=== PATIENT | female | born 1955 | race Caucasian/White ===

== ENCOUNTER 2017-09-29 20:41 | Emergency (ER) | payer BC ==
--- NOTE | 2017-09-29 20:51 | CPEKG ---
Heart Rate: 80 RR Interval: 750 P-R Interval: 172 QRSD Interval: 96 QT Interval: 400 QTC Interval: 462 P Lamoni: 81 QRS Lamoni: 18 T Wave Lamoni: 53 EKG Severity - ABNORMAL ECG - EKG Impression: SINUS RHYTHM w nonconducted PAC EKG Impression: PROBABLE LEFT ATRIAL ABNORMALITY EKG Impression: BORDERLINE T ABNORMALITIES, ANTERIOR LEADS Electronically Signed By: Aubrey Dye 01-Oct-2017 09:01:49
[2017-09-29 21:24] LABS: PLATELET COUNT 321 10^3/uL (150-400)
[2017-09-29 21:29] LABS: PROTIME(PATIENT) 13.1 SEC (12.0-15.0)
--- NOTE | 2017-09-29 21:30 | EDPHY ---
H & P Stated Complaint: Lightheaded, short of breath. Time Seen by Provider: 09/29/17 20:46 HPI/ROS: 62-year-old female presents complaining of shortness of breath, dizziness, upper abdominal discomfort, abdominal bloating, a sensation of her legs feeling heavy. She recently return from a trip to [place] where she had similar symptoms but of much shorter duration. She also spent the last 3 days [place] in [place] Review of systems As per HPI General no fever no chills no weakness, generalized fatigue HEENT no eye pain no eye discharge. No eye redness, no sore throat Respiratory no cough, positive shortness of breath, no leg edema Cardiac no chest pain, no peripheral edema GI positive abdominal discomfort, denies abdominal pain, no diarrhea, no constipation, positive nausea and positive poor appetite nausea, no vomiting no flank pain, no hematuria, no dysuria Musculoskeletal no myalgias, no joint pain Heme no easy bruising, no easy bleeding Endo no polyuria, no polydipsia Skin no rashes, no pruritus Neuro no syncope, no dizziness, no headaches Psych is no suicidal ideation, no homicidal ideation Source: Patient, Family Exam Limitations: No limitations - Personal History Current Tetanus/Diphtheria Vaccine: Unsure Current Tetanus Diphtheria and Acellular Pertussis (TDAP): Unsure - Medical/Surgical History Hx Asthma: Yes Hx Chronic Respiratory Disease: No Hx Diabetes: No Hx Cardiac Disease: Yes Hx Renal Disease: No Hx Cirrhosis: No Hx Alcoholism: No Hx HIV/AIDS: No Hx Splenectomy or Spleen Trauma: No Other PMH: depression, hyperlipidemia, asthma, has loop monitor for syncopal episodes and arrythmias-sees Manje[facility]cala, L4-5 fusion, ovarian cyst surgery , GERD, - Family History Significant Family History: No pertinent family hx - Social History Smoking Status: Never smoked Alcohol Use: Rarely Drug Use: None - Physical Exam Exam: A 62-year-old female alert and oriented no acute distress nontoxic appearance afebrile HEENT atraumatic normocephalic, extraocular muscles intact, anicteric Oropharynx negative for erythema negative exudate, tolerating her own secretions Neck supple no meningismus Lungs clear to auscultation bilaterally Heart regular rate and rhythm without murmur rub or gallop Abdomen nondistended normoactive bowel sounds soft, right upper quadrant tenderness no guarding no rebound no pulsatile mass Back no CVA tenderness, no step-offs, no spinal tenderness Extremities no cyanosis clubbing or edema Neuro alert and oriented, no focal deficits Constitutional: Initial Vital Signs Temperature (C) 36.6 C 09/29/17 20:45 Heart Rate 88 09/29/17 20:45 Respiratory Rate 18 09/29/17 20:45 Blood Pressure 128/83 H 09/29/17 20:45 O2 Sat (%) 96 09/29/17 20:45 O2 Delivery Mode Room Air Allergies/Adverse Reactions: codeine Allergy (Verified 09/29/17 20:58) Home Medications: Medication Instructions Recorded ALBUTEROL SULFATE 03/21/16 Metoprolol Tartrate 09/29/17 Zoloft 50mg (*) 09/29/17 Medical Decision Making - Diagnostics Imaging Results: Imaging Impressions Abdomen Ultrasound 09/29/17 21:06 Impression: Negative right upper quadrant ultrasound. A simple cyst of the right kidney is noted. Results called and discussed with Imelda Simons MD on 09/29/2017 at 22:29 Chest X-Ray 09/29/17 21:07 Impression: Query airways disease with no superimposed acute abnormality identified. ED Course/Re-evaluation: Patient seen and evaluated for the shortness of breath, dizziness, upper abdominal discomfort and leg heaviness intermittent for several days however markedly worse at about 6:00 p.m. Tonight. CBC within normal limits D-dimer negative Troponin negative Chest x-ray neg Right upper quadrant ultrasound neg EKG Sinus rhythm, question Mobitz type 2 atrioventricular block Rhythm strip- NSR, still with concern for type 2 AVB, PR172 Pt given 1 liter normal saline. Impression AVB, Mobitz Type 2 Plan Admit for observation, possible pacemaker placement. Differential Diagnosis: Differential diagnosis considered but not limited to: Myocardial infarction, pulmonary embolus, dysrhythmia, cholelithiasis, biliary colic, gastritis Hypothyroidism - Data Points Laboratory Results: Laboratory Results 09/29/17 21:10 09/29/17 21:10 09/29/17 09/29/17 09/29/17 21:13 21:10 21:10 WBC RBC Hgb POC Hgb 12.9 gm/dL gm/dL (12.6-16.3) Hct POC Hct 38 % % (38-47) MCV MCH MCHC RDW Plt Count MPV Neut % (Auto) Lymph % (Auto) Dyer % (Auto) Eos % (Auto) Baso % (Auto) Nucleat RBC Rel Count Absolute Neuts (auto) Absolute Lymphs (auto) Absolute Monos (auto) Absolute Eos (auto) Absolute Basos (auto) Absolute Nucleated RBC Immature Gran % Immature Gran # PT INR APTT D-Dimer VBG Lactic Acid POC Sodium 136 mEq/L mEq/L (135-145) Sodium POC Potassium 3.4 mEq/L mEq/L (3.3-5.0) Potassium POC Chloride 102 mEq/L mEq/L (97-110) Chloride Carbon Dioxide Anion Gap POC BUN 15 mg/dL mg/dL (7-23) BUN Creatinine POC Creatinine 1.0 mg/dL mg/dL (0.6-1.0) Estimated GFR Glucose POC Glucose 114 mg/dL H mg/dL (70-100) Calcium Magnesium Cancelled Total Bilirubin AST ALT Alkaline Phosphatase Troponin I < 0.012 ng/mL ng/mL (0.000-0.034) Total Protein Albumin Lipase TSH 3.760 uIU/mL uIU/mL (0.465-4.680) 09/29/17 09/29/17 09/29/17 21:10 21:10 21:10 WBC 5.86 10^3/uL 10^3/uL (3.80-9.50) RBC 3.75 10^6/uL L 10^6/uL (4.18-5.33) Hgb 12.4 g/dL L g/dL (12.6-16.3) POC Hgb Hct 34.9 % L % (38.0-47.0) POC Hct MCV 93.1 fL fL (81.5-99.8) MCH 33.1 pg pg (27.9-34.1) MCHC 35.5 g/dL g/dL (32.4-36.7) RDW 13.0 % % (11.5-15.2) Plt Count 321 10^3/uL 10^3/uL (150-400) MPV 9.0 fL fL (8.7-11.7) Neut % (Auto) 41.0 % % (39.3-74.2) Lymph % (Auto) 46.2 % H % (15.0-45.0) Dyer % (Auto) 9.9 % % (4.5-13.0) Eos % (Auto) 2.2 % % (0.6-7.6) Baso % (Auto) 0.5 % % (0.3-1.7) Nucleat RBC Rel Count 0.0 % % (0.0-0.2) Absolute Neuts (auto) 2.40 10^3/uL 10^3/uL (1.70-6.50) Absolute Lymphs (auto) 2.71 10^3/uL 10^3/uL (1.00-3.00) Absolute Monos (auto) 0.58 10^3/uL 10^3/uL (0.30-0.80) Absolute Eos (auto) 0.13 10^3/uL 10^3/uL (0.03-0.40) Absolute Basos (auto) 0.03 10^3/uL 10^3/uL (0.02-0.10) Absolute Nucleated RBC 0.00 10^3/uL 10^3/uL (0-0.01) Immature Gran % 0.2 % % (0.0-1.1) Immature Gran # 0.01 10^3/uL 10^3/uL (0.00-0.10) PT 13.1 SEC SEC (12.0-15.0) INR 1.00 (0.83-1.16) APTT 28.6 SEC SEC (23.0-38.0) D-Dimer < 0.27 ug/mLFEU ug/mLFEU (0.00-0.50) VBG Lactic Acid POC Sodium Sodium 133 mEq/L L mEq/L (135-145) POC Potassium Potassium 3.7 mEq/L mEq/L (3.5-5.2) POC Chloride Chloride 100 mEq/L mEq/L (97-110) Carbon Dioxide 21 mEq/l L mEq/l (22-31) Anion Gap 12 mEq/L mEq/L (8-16) POC BUN BUN 15 mg/dL mg/dL (7-23) Creatinine 0.9 mg/dL mg/dL (0.6-1.0) POC Creatinine Estimated GFR > 60 Glucose 104 mg/dL H mg/dL (70-100) POC Glucose Calcium 10.2 mg/dL mg/dL (8.5-10.4) Magnesium 2.0 mg/dL mg/dL (1.6-2.3) Total Bilirubin 0.4 mg/dL mg/dL (0.1-1.4) AST 28 IU/L IU/L (14-46) ALT 38 IU/L IU/L (9-52) Alkaline Phosphatase 74 IU/L IU/L (38-126) Troponin I Cancelled Total Protein 7.1 g/dL g/dL (6.3-8.2) Albumin 4.2 g/dL g/dL (3.5-5.0) Lipase 130 IU/L IU/L (23-300) TSH 09/29/17 21:10 WBC RBC Hgb POC Hgb Hct POC Hct MCV MCH MCHC RDW Plt Count MPV Neut % (Auto) Lymph % (Auto) Dyer % (Auto) Eos % (Auto) Baso % (Auto) Nucleat RBC Rel Count Absolute Neuts (auto) Absolute Lymphs (auto) Absolute Monos (auto) Absolute Eos (auto) Absolute Basos (auto) Absolute Nucleated RBC Immature Gran % Immature Gran # PT INR APTT D-Dimer VBG Lactic Acid 1.6 mmol/L mmol/L (0.7-2.1) POC Sodium Sodium POC Potassium Potassium POC Chloride Chloride Carbon Dioxide Anion Gap POC BUN BUN Creatinine POC Creatinine Estimated GFR Glucose POC Glucose Calcium Magnesium Total Bilirubin AST ALT Alkaline Phosphatase Troponin I Total Protein Albumin Lipase TSH Medications Given: Discontinued Medications Sodium Chloride (Ns) 1,000 mls @ 0 mls/hr IV ONCE ONE PRN Reason: Wide Open Stop: 09/29/17 22:12 Last Admin: 09/29/17 22:22 Dose: 1,000 mls Point of Care Test Results: 09/29/17 21:13 POC Sodium 136 POC Potassium 3.4 POC Chloride 102 POC BUN 15 POC Creatinine 1.0 POC Glucose 114 H Departure - Departure Disposition: Acute Care Hospital Not [facility] Clinical Impression: Atrioventricular block, Mobitz type 2 Condition: Good Referrals: Harriet De Jesus [Primary Care Provider] - As per Instructions
[2017-09-29] MEDS ORDERED: NS 1,000 ML IV ONE (22:11)
[2017-09-29 23:37] VITALS: BP 111/60; O2SAT 97
[2017-09-29] MEDS ORDERED: HYOSCYAMINE SULFATE 0.125 MG TAB PO ONE (23:58)
[2017-09-29] MEDS ORDERED: MAG HYDROX/AL HYDROX/SIMETH 30 ML UDCUP PO ONE (23:58)
[2017-09-30] MEDS: LIDOCAINE 2% VISCOUS 15 ML UDCUP PO ONE ×2 (00:02→00:22)
[2017-09-30] MEDS ORDERED: ASPIRIN 81 MG CHEWABLE TAB PO ONE (00:43)
[2017-09-30 01:06] VITALS: PULSE 69; RESP 16; TEMP 97.5
== END 2017-09-30 01:03 | disposition short-term general hospital (02) ==
LOC: CED 20:41
DX: I44.1 Atrioventricular block, second degree (principal); J45.909 Unspecified asthma, uncomplicated; R42 Dizziness and giddiness
CPT/HCPCS: 71046-PO; 76705-PO; 80053-PO; 82947-QW; 83605-PO; 83690-PO; 83735-PO; 84443-PO; 84484-PO; 85025-PO; 85378-PO; 85610-PO; 85730-PO

== ENCOUNTER → 2017-10-13 | Outpatient (CLI) | payer BC | LOC: FIMAGING 07:56 | PROVIDERS: ATTEND Internal Medicine | DX: K44.9 Diaphragmatic hernia without obstruction or gangrene (principal); K21.9 Gastro-esophageal reflux disease without esophagitis ==

== ENCOUNTER → 2018-01-07 | Outpatient (CLI) | payer BC | LOC: CIMAGING 13:26 | PROVIDERS: ATTEND Family Medicine | DX: N63.11 Unspecified lump in the right breast, upper outer quadrant (principal) | CPT/HCPCS: 76641-PO ==

== ENCOUNTER 2018-03-17 06:59 | Observation (INO) | payer BC ==
[2018-03-17] MEDS ORDERED: NS 1,000 ML IV ONE (07:05)
[2018-03-17 07:45] LABS: PLATELET COUNT 291 10^3/uL (150-400)
[2018-03-17 07:53] LABS: INR 0.96 (0.83-1.16)
--- NOTE | 2018-03-17 08:09 | PDGENHP ---
History & Physical Chief Complaint: svt, pre syncope Relevant Physical Exam: s1s2 rrr cta ao3 Cardiorespiratory Assessment: svt for eps and ablation
[2018-03-17] MEDS ORDERED: HEPARIN 10,000 UNIT/10 ML MDV (1,000 UNIT/ML) ONE (08:18)
[2018-03-17] MEDS ORDERED: LIDOCAINE 1% 300 MG/30 ML SDV ONE (08:18)
[2018-03-17] MEDS ORDERED: ISOPROTERENOL HCL/D5W 0.2 MG/50 ML BAG IV ONE ×2 (08:20→09:55)
--- NOTE | 2018-03-17 08:34 | PDANEPAE ---
ANE History of Present Illness SVT s/f ablation ANE Past Medical History - Cardiovascular History Hx Arrhythmias: Yes - Pulmonary History Hx Asthma/Reactive Airway Disease: Yes Hx Oxygen in Use at Home: No Hx Sleep Apnea: No - Endocrine History Hx Diabetes: No Endocrine History Comment: dyslipidemia ANE Review of Systems Review of systems is: negative Review of Systems: - Exercise capacity Exercise capacity: >=4 METS ANE Patient History - Allergies Allergies/Adverse Reactions: latex Allergy (Mild, Unverified 03/10/18 16:08) Rash codeine Allergy (Verified 03/10/18 16:08) - Home Medications Home medications: home medication list seen and reviewed Home Medications: Sertraline HCl [Zoloft 50mg (*)] 50 mg PO DAILY 09/29/17 [Last Taken 03/16/18 08 :00] Albuterol [Proventil Inhaler HFA (*)] 1 - 2 puffs IH Q4H PRN 03/10/18 [Last Taken Unknown] Cholecalciferol Vit D3 [Vitamin D3 (*)] 1,000 units PO DAILY 03/10/18 [Last Taken 03/15/18] Herbals/Supplements -Info Only 1 ea PO DAILY 03/10/18 [Last Taken 03/15/18 08:00 ] Metoprolol Succinate Xr [Toprol Xl 25 mg (*)] 12.5 mg PO HS 03/10/18 [Last Taken 03/16/18 22:00] Layton-3S/Dha/Epa/Fish Oil [Fish Oil 1,200 mg Softgel] 1 each PO DAILY 03/10/18 [ Last Taken 03/15/18 08:00] Omeprazole Magnesium 20 mg PO DAILY 03/10/18 [Last Taken 03/15/18 08:00] Vitamin B Complex [Vitamin B Complex (OTC)] 1 each PO DAILY 03/10/18 [Last Taken 03/15/18 08:00] - NPO status NPO Status: no food or drink >8 hours - Anes Hx Anes Hx: no prior problems (? slow to wake up) - Smoking Hx Smoking Status: Never smoked - Alcohol Use Alcohol Use: Rarely - Family Anes Hx Family Anes Hx: none ANE Labs/Vital Signs - Labs Result Diagrams: 03/17/18 07:40 03/17/18 07:40 - Vital Signs Height: 167.64 cm Weight: 65.771 kg ANE Physical Exam - Airway Neck exam: FROM Mallampati Score: Class 2 Mouth exam: normal dental/mouth exam - Pulmonary Pulmonary: no respiratory distress - Cardiovascular Cardiovascular: regular rate and rhythym - ASA Status ASA Status: II ANE Anesthesia Plan Anesthesia Plan: general endotracheal anesthesia
[2018-03-17] MEDS ORDERED: PROPOFOL/EMULSION 500 MG/50 ML BOTTLE IV ONE ×2 (08:51→10:21)
[2018-03-17] MEDS ORDERED: fentaNYL 100 MCG/2 ML INJ ONE (08:51)
[2018-03-17] MEDS ORDERED: ROCURONIUM 100 MG/10 ML VIAL ONE (08:53)
[2018-03-17] MEDS ORDERED: DEXAMETHASONE 4 MG/ML VIAL ONE ×2 (09:00)
[2018-03-17] MEDS ORDERED: ONDANSETRON 4 MG/2 ML VIAL ONE (09:00)
[2018-03-17] MEDS ORDERED: ROCURONIUM 50 MG/5 ML VIAL ONE ×2 (09:55→10:44)
[2018-03-17] MEDS ORDERED: PROTAMINE SULFATE 50 MG/5 ML VIAL IVP ONE (10:59)
[2018-03-17] MEDS ORDERED: SUGAMMADEX SODIUM 200 MG/2 ML VIAL IVP ONE (11:01)
[2018-03-17] MEDS ORDERED: ALBUTEROL 60 PUFFS/8 GM MDI IH PRN (11:21)
--- NOTE | 2018-03-17 12:51 | POSTANESTH ---
Post Anesthetic Evaluation Cardiovascular Status: Normal, Stable Respiratory Status: Normal, Stable Level of Consciousness/Mental Status: Can Participate in Eval Pain Control: Adequate, Prn Tx Ordered Nausea/Vomiting Control: Adequate, Prn Tx Ordered Complications Possibly Related to Anesthesia: None Noted
[2018-03-17] MEDS ORDERED: ACETAMINOPHEN 325 MG TAB ONE (13:00)
[2018-03-17] MEDS ORDERED: ACETAMINOPHEN 500 MG TAB PO PRN (13:05)
--- NOTE | 2018-03-17 15:02 | CPEKG ---
Test Reason : OPEN Blood Pressure : / mmHG Vent. Rate : 075 BPM Atrial Rate : 075 BPM P-R Int : 174 ms QRS Dur : 099 ms QT Int : 401 ms P-R-T Axes : 077 036 048 degrees QTc Int : 448 ms Sinus rhythm Confirmed by Barry Fonseca ([id number]) on 03/17/2018 3:02:17 PM Referred By: Confirmed By:Barry Fonseca
[2018-03-17] MEDS ORDERED: ACETAMINOPHEN 325 MG TAB PO PRN (17:00)
--- NOTE | 2018-03-17 17:10 | EPPROC ---
Electrophysiology Procedure Note: ELECTROPHYSIOLOGIC STUDY AND CATHETER MEDIATED ABLATION OF FOCAL RIGHT ATRIAL TACHYCARDIA PROCEDURES PERFORMED: 1. EP evaluation with RA/RV/LA pace/record, with arrhythmia induction 2. EP evaluation with RA/RV pace record, insert/reposition catheter, with arrhythmia induction 3. Intracardiac catheter ablation, SVT arrhythmogenic focus Second arrhythmia 4. 3D mapping 5. Fluoroscopy INDICATION: RECURRENT SVT WITH PRESYNCOPE Catheters and anesthesia: The patient arrived in the Electrophysiology Laboratory in the fasting state. The right clavicular region, right groin, and left groin area were prepped and draped in the usual sterile manner. Anesthesiologist Dr. Santana Urena administered general anesthesia. Appropriate non-invasive blood pressure, pulse oximetry and end-tidal CO2 monitoring was established. All catheters were placed percutaneously using the modified Seldinger technique , and advanced into position under fluoroscopic guidance. One #7 Sinhala deflectable octapolar electrode catheter was advanced to the His-bundle position via the left femoral vein). One #7 Sinhala deflectable catheter with 10 pairs of electrodes was placed via the left femoral vein into the coronary sinus. Rosaline catheter was placed in the RA. Programmed stimulation was performed from the right atrium, left atrium ( coronary sinus) and right ventricle. Parahisian pacing demonstrated all retrograde conduction over the AV node Heparin was administered to keep ACT > 200 seconds. Programmed stimulation of right atrium during infusion of isoproterenol 2 mcg/ min induced an atrial tachycardia AT#1, cycle length 330 milliseconds. High resolution mapping of the atrial tachycardia was done using Pentaray catheter. Following this, a #7 Sinhala mapping catheter was introduced into the right atrium and used for mapping AT . Mobi sheath was used. A 3D mapping system (Carto) was used. A detailed 3D map of the right atrium and coronary sinus showed earliest atrial activation along the superior and lateral aspect of the Miesha terminalis. Earliest atrial activation began 30 ms before the onset of the P wave with a negative deflection in the unipolar electrogram. RF applications were delivered to this site. This terminated tachycardia. Further RF applications were applied to this site. Post ablation, atrial tachycardia 2., cycle length 360 milliseconds was induced. This was ablated 1.5 cm inferior to the site of atrial tachycardia 1. Programmed stimulation in the baseline state and during infusion of isoproterenol 1, 2 and 4 mcg/min post ablation was performed. No tachycardia could be induced. The catheters were removed. The patient was transferred to the cardiovascular holding area in stable condition. Vascular access sheaths were removed in the holding area. There were no apparent complications. RESULTS A. Spontaneous Intervals: Pre ablation SCL 830 ms AH 90 ms HV 40 ms Post ablation SCL 670 ms AH 80 ms HV 40 ms B. Antegrade AV judah function (decremental pacing) Pre ablation FPERP 430 ms SPERP 420 ms WBB CL 410 ms Post ablation FPERP 410 ms WBB CL 400 ms C. Retrograde AV judah function (decremental pacing) Pre ablation FPERP 400 ms WBB CL 390 ms CONCLUSIONS: 1. Focal right atrial tachycardia , 2 separate foci, arising near the superior and lateral aspect of the Miesha terminalis. 2. Successful ablation of focal atrial tachycardia. 3. Slow AV judah pathway present, AVNRT not inducible, slow AV judah pathway not targeted for ablation. 4. Patent foraminal ovale. 5. No apparent complications. Patient Problems: Problems Problem Status Onset Supraventricular tachycardia Acute
[2018-03-18 04:59] LABS: PLATELET COUNT 263 10^3/uL (150-400)
[2018-03-18] MEDS ORDERED: CHOLECALCIFEROL VIT D3 1,000 UNITS TAB PO SCH (09:00)
[2018-03-18] MEDS ORDERED: VITAMIN B COMPLEX 1 EA CAP/TAB PO SCH (09:00)
[2018-03-18] MEDS ORDERED: SERTRALINE HCL 50 MG TAB PO SCH (09:00)
[2018-03-18] MEDS ORDERED: PANTOPRAZOLE SODIUM 40 MG TAB PO SCH (09:00)
[2018-03-18] MEDS ORDERED: ASPIRIN 81 MG CHEWABLE TAB PO SCH (09:00)
[2018-03-18] MEDS ORDERED: OMEGA-3 FATTY ACIDS 1,000 MG CAP PO SCH (09:00)
--- NOTE | 2018-03-18 11:51 | ASMTCASEMG ---
Living Arrangements What is your living Answers: With Spouse arrangement? Who do you live with? Type Of Residence What kind of residence do Answers: House you live in? Discharge Plan Comments Coordination Status Comments Notes: Pt is a 62 y/o female admitted for SVT and pre syncope. Pt will d/c independent when medically stable. No therapies ordered at this time. CM available for changes. Plan: Independent Date Signed: 03/18/2018 11:50 AM Electronically Signed By:AYLA Lake
[2018-03-18 12:01] VITALS: BP 105/60
--- NOTE | 2018-03-18 12:34 | ASDISCHSUM ---
Discharge Information Plan Status:Home with No Needs Medically Cleared to Leave:03/18/2018 Discharge Date:03/18/2018 CM D/C Disposition:Home, Routine, Self-Care ADT D/C Disposition:Home, Routine, Self-Care Projected Discharge Date:03/18/2018 Transportation at D/C:Family Discharge Delay Reason: Follow-Up Date:03/18/2018 Discharge Slot: Final Diagnosis: Placement Information Patient Contact Information Contact Name:JASIEL Relationship: Address:[address] [place] [address] City:[facility] Phone: [facility]/Zip Code:[place] [address] Email: Financial Information Financial Class:HMO and PPO Plans Primary Plan Desc:[place] [facility] Primary Plan Number:[id number] Secondary Plan Desc: Secondary Plan Number: Assessment Information LACE LACE Length of stay for Answers: 1 day current admission Acuity / Level of Answers: No Care: Did the patient have an inpatient admission? Comorbidities - select Answers: Coronary Artery Disease all that apply Other Notes: Hyperlipidemia; GERD; A st ma # of Emergency department Answers: 1-2 visits in the last 6 months Social determinants Answers: Mental health diagnosis (anxiety, depression, pers onality disorders, etc.) Score: 8 Date Signed: 03/18/2018 12:32 PM Electronically Signed By:Esther Capps RN [facility] Initial CM Assessment Living Arrangements What is your living Answers: With Spouse arrangement? Who do you live with? Type Of Residence What kind of residence do Answers: House you live in? Discharge Plan Comments Coordination Status Comments Notes: Pt is a 62 y/o female admitted for SVT and pre syncope. Pt will d/c independent when medically stable. No therapies ordered at this time. CM available for changes. Plan: Independent Date Signed: 03/18/2018 11:50 AM Electronically Signed By:AYLA Lake Intervention Information
--- NOTE | 2018-03-18 13:42 | ECHO ---
[email or web address] [address] Main: [phone] Fax: Transthoracic Echocardiogram Name: ARMAND SANZ MR#: [id number] Study Date: 03/18/2018 Study Time: 08:03 AM Date of : 1955 Age: 62 year(s) Height: 167.6 cm (66 in.) Weight: 65.77 kg (145 lb.) BSA: 1.74 m2 Gender: Female Examination: Echo Indication: F/U post EP study Image Quality: Adequate Contrast: Requested by: Aubrey Dye BP: 104 mmHg/57 mmHg Heart Rate: Rhythm: Indication: F/U post EP study Procedure Staff Patrol Lady: Monique Wloff [facility] Reading Physician: Ray Mcclendon MD Requesting Provider: Conclusions: Normal size left ventricle. Normal global systolic LV function. EF is 70 %. Small left to right shunt across the interatrial septum noted with color flow Doppler. The mitral valve is normal in appearance and function. Trivial mitral valve regurgitation. The aortic valve is tri-leaflet. There is no aortic valve regurgitation. No aortic valve stenosis is present. Right ventricular systolic pressure measures 28mmHg. Trivial anterior pericardial effusion. Measurements: Chambers Valvular Assessment AV/MV Valvular Assessment TV/PV Normal Normal Normal Name Value Range Name Value Range Name Value Range Ao Tiara (MM): 2.4 cm (2.2 cm-3.7 AV Vmax: 0.87 m/s (1 m/s-1.7 TR Vmax: 2.11 mm/s ( - ) cm) m/s) TR PGmax: 18 mmHg ( - ) IVSd (2D): 0.8 cm (0.6 cm-1.1 AV maxP mmHg ( - ) syst. PAP: 28 mmHg ( - ) cm) LVOT Vmax: 0.80 m/s (0.7 m/s-1.1 PV Vmax: 0.56 m/s (0.6 m/s-0.9 LVDd (2D): 4.4 cm (3.9 cm-5.3 m/s) m/s) cm) MV E Vmax: 0.59 m/s ( - ) PV PGmax: 1 mmHg ( - ) LVDs (2D): 2.9 cm (2.1 cm-4 MV A Vmax: 0.51 m/s ( - ) cm) MV E/A: 1.16 ( - ) LVPWd (2D): 0.8 cm ( - ) LVEF (BP): 70 % (>=55 %) RVDd(2D): 3.0 cm (1.9 cm-3.8 cmmm) Continued Measurements: Patient: ARMAND SANZ Study Date: 03/18/2018 Page 1 of 2 08:03 AM Chambers Valvular Assessment AV/MV Valvular Assessment TV/PV Name Value Name Value Name Value LADs Lon.9 cm MV DecTime: 180 m/s CVP (est.): 10 mmHg LA Area: 16.8 cm2 MV E/E' Septal: 7.20 LA Volume: 48 ml MV E/E' Lateral: 6.10 LA Volume Index: 27.6 ml/m2 TAPSE: 2.4 cm RA Area: 13.9 cm2 Additional Vessels Name Value Ao Ascendin.0 cm Findings: Left Ventricle: Normal size left ventricle. No LV hypertrophy. Normal global systolic LV function. EF is 70 %. No regional wall motion abnormality. Normal diastolic LV function. Right Ventricle: Normal size right ventricle. Normal RV function. Left Atrium: The left atrium is normal in size. Small left to right shunt across the interatrial septum noted with color flow Doppler. Right Atrium: The right atrium is normal in size. Mitral Valve: The mitral valve is normal in appearance and function. Trivial mitral valve regurgitation. No mitral stenosis is present. Aortic Valve: The aortic valve is tri-leaflet. There is no aortic valve regurgitation. No aortic valve stenosis is present. Tricuspid Valve: The tricuspid valve is normal in appearance and function. Mild tricuspid regurgitation is present. Right ventricular systolic pressure measures 28mmHg. The pulmonary artery pressure is normal. Pulmonic Valve: The pulmonic valve is normal in appearance and function. Trivial pulmonic valve regurgitation. Aorta: Normal size aortic root measuring 2.4 cm. Normal size ascending aorta measuring 3.0 cm. IVC: The IVC is dilated. Pericardium: Trivial anterior pericardial effusion. (No Signature Object) Patient: ARMAND SANZ Study Date: 03/18/2018 Page 2 of 2 08:03 AM [id number]
--- NOTE | 2018-03-18 17:06 | CPEKG ---
Test Reason : OPEN Blood Pressure : / mmHG Vent. Rate : 053 BPM Atrial Rate : 051 BPM P-R Int : 175 ms QRS Dur : 097 ms QT Int : 423 ms P-R-T Axes : 076 046 036 degrees QTc Int : 398 ms Sinus rhythm Atrial premature complexes in couplets Probable left atrial enlargement Confirmed by Barry Fonseca ([id number]) on 03/18/2018 5:05:49 PM Referred By: Confirmed By:Barry Fonseca
--- NOTE | 2018-03-18 17:12 | CPEKG ---
Test Reason : OPEN Blood Pressure : / mmHG Vent. Rate : 066 BPM Atrial Rate : 066 BPM P-R Int : 174 ms QRS Dur : 101 ms QT Int : 396 ms P-R-T Axes : 028 021 022 degrees QTc Int : 415 ms Sinus rhythm Confirmed by Barry Fonseca ([id number]) on 03/18/2018 5:12:09 PM Referred By: Confirmed By:Barry Fonseca
--- NOTE | 2018-03-18 20:15 | GDS ---
[f rep st] DISCHARGE SUMMARY ADMIT DIAGNOSES: 1. Supraventricular tachycardia. 2. Planned electrophysiology study with possible ablation. DISCHARGE DIAGNOSIS: Status post electrophysiology study with supraventricular tachycardia ablation. Aleisha was seen in clinic in late January 2018. She had a LINQ implantable loop recorder in place, which captured an episode of SVT. Dr. Aubrey Dye visited with her regarding her options of medication savanna sara ablation therapy, and it was decided to proceed with ablation therapy. Dr. Dye took her to the e lectrophysiology lab on March 17, 2018, where he was able to successfully isolate and ablate SVT. T here were no complications. She was taken to PCU for overnight observation, where she has done well. She has not had any palpitations or groin site problems. She has been up ambulating and feels read y for discharge. ALLERGIES: She has allergies to latex and codeine. DISCHARGE MEDICATIONS: She will be discharged home on Zoloft 50 mg daily, Proventil inhaler 1-2 puff s every 4 hours as needed, vitamin B complex 1 daily, omeprazole 20 mg daily, [place]-3 fish oil 1 mirna y, herbal supplements 1 daily, vitamin D3 1000 units daily, Tylenol 325 mg not to exceed 3000 mg mirna y. She can take 325 mg to 650 mg every 6 hours as needed for pain. Aspirin 81 mg daily. EXAM ON DAY OF DISCHARGE: GENERAL: She is feeling well. VITAL SIGNS: Her blood pressure 105/60, h eart rate 60 and regular, oxygen saturation 95%. EKG shows sinus rhythm with a rate of 66. Heart ra te is regular. No murmurs, rubs, gallops. LUNGS: Sounds are clear to auscultation. No wheezes, ra les, or rhonchi. EXTREMITIES: No peripheral edema. Pulses 2+ bilaterally. Groin sites intact with no bleeding or induration. Stitch was removed at groin sites bilaterally with no complications. Echocardiogram post procedure shows ejection fraction 70%, trivial anterior pericardial effusion. DISCHARGE PLAN: 1. Groin site care was reviewed both verbally and written. 2. No heavy lifting, pushing, pulling greater than 10 pounds for 7 days. 3. No sitting in a tub of water for 7 days. Okay to shower. 4. Activity: Low level for 1st week. After 2 weeks, she can resume riding her bike. 5. She will follow up with Dr. Dye in 1 month. The office will call with an appointment. 6. At this time she currently is stable for discharge. /[id number]/MODL
== END 2018-03-18 14:33 | disposition home or self-care (01) ==
LOC: FCATH 06:59 → F2W 11:19
PROVIDERS: ADMIT Internal Medicine Cardiovascular Disease; ATTEND Internal Medicine Cardiovascular Disease
PROC: 02563ZZ Destruction of Right Atrium, Percutaneous Approach (ICD-10-PCS; principal; 2018-03-17)
DX: I47.1 Supraventricular tachycardia (principal); R55 Syncope and collapse
CPT/HCPCS: 93005; 93306; 93613; 93621; 93623; 93653; C1730; C1732; G0378; C1731; C1766; J1100; J1644; J2405; J2704; J2720; J3010